=== PATIENT | female | born 1975 | race Caucasian/White ===

== ENCOUNTER 2017-03-01 20:58 | Emergency (ER) | payer MEDICAID ==
[~2017-03-01] VITALS: Ht 167.6 cm; Wt 58.2 kg
[~2017-03-01 20:58] MED LIST: CIPR500T4 PO; LORTA5 PO
[2017-03-01 21:10] VITALS: BP 133/95; PULSE 108; RESP 20; TEMP 98.9; O2SAT 97
[2017-03-01] MEDS ORDERED: SODIUM CHLOR 0.9% 1000 ML INJ 1,000 ML IV SCH ×2 (22:01→23:15)
--- NOTE | 2017-03-01 22:08 | PD ---
HPI Chief Complaint: nausea/vomiting/diarrhea Time Seen by Provider: 22:01 Travel History International Travel<30 days: No Contact w/Intl Traveler<30days: No Traveled to known affect area: No History of Present Illness HPI The patient is a 41-year-old female that has had nausea, vomiting and diarrhea as well as midline epigastric pain for over a week. She denies vomiting any blood or any melanotic or bloody stools. She states she is extremely anxious, she just lost her job and is going through a divorce. She has had a tubal ligation. The patient does have a history of chronic bowel problems but they could never find out what the problem was. They considered things like Crohn's disease, irritable bowel syndrome but they never gave her a diagnosis. She states she goes along for a number of months without any problem and then gets nausea, vomiting and diarrhea. She also has a history of frequent kidney infections. She does feel dehydrated. She still has her gallbladder and appendix. She states she cannot be , she has had a tubal ligation. PFSH Past Medical History Blood Disorders: No Cardiovascular Problems: No Diabetes: No Diminished Hearing: No Hepatitis: No Hiatal Hernia: No Kidney Stones: Yes Respiratory: No Immunizations Current: Yes Thyroid Disease: No : 3 Para: 3 Miscarriage: 0 : 0 Dilation and Curettage (D&C): Yes Tubal Ligation: Yes (2006) Past Surgical History Genitourinary Surgery: Yes (09/20 CYSTOSCOPY INERTION URETERAL STENT) Gynecologic Surgery: Yes (D&C X 2; TUBAL LIGATION) Pacemaker: No Thoracic Surgery: Yes (INSERTION BILATERAL BREAST IMPLANTS) Other Surgery: Yes (2 STENTS PLACED IN RT KIDNEY 09/23/12) Social History Alcohol Use: No Tobacco Use: No Substance Use: No Allergies-Medications (Allergen,Severity, Reaction): Coded Allergies: No Known Allergies (Verified , 10/20/12) NKA Reported Meds & Prescriptions Reported Meds & Active Scripts Active Phenergan (Promethazine HCl) 25 Mg Tablet 25 Mg PO Q6H PRN Reported Jinteli 1/5 (Norethindrone-Ethinyl Estradiol) 1-5 Mg-Mcg Tab 0.5 Tab PO DAILY Review of Systems Except as stated in HPI: all other systems reviewed are Neg Physical Exam Narrative GENERAL: The patient is alert, anxious, oriented 3, moderately dehydrated appearing in moderate apparent distress with her abdominal discomfort. Her vital signs show heart rate of 108 with blood pressure 133/95 but are otherwise normal. SKIN: Focused skin assessment warm/dry. HEAD: Atraumatic. Normocephalic. EYES: Pupils equal and round. No scleral icterus. No injection or drainage. ENT: No nasal bleeding or discharge. Mucous membranes pink and moist. NECK: Trachea midline. No JVD. CARDIOVASCULAR: Regular rate and rhythm. No murmur appreciated. RESPIRATORY: No accessory muscle use. Clear to auscultation. Breath sounds equal bilaterally. GASTROINTESTINAL: Abdomen soft, with tenderness to direct palpation in all 4 quadrants but particularly in the midline epigastrium. Also noted is left flank tenderness to direct palpation, nondistended. Hepatic and splenic margins not palpable. No guarding or rebound is present. MUSCULOSKELETAL: No obvious deformities. No clubbing. No cyanosis. No edema. NEUROLOGICAL: Awake and alert. No obvious cranial nerve deficits. Motor grossly within normal limits. Normal speech. PSYCHIATRIC: Appropriate mood and affect; insight and judgment normal. Data Data Last Documented VS Vital Signs Date Time Temp Pulse Resp B/P Pulse Ox O2 Delivery O2 Flow Rate FiO2 03/01/17 23:26 80 18 115/52 98 Room Air 03/01/17 21:10 98.9 Orders Complete Blood Count With Diff (03/01/17 22:01) Comprehensive Metabolic Panel (03/01/17 22:01) Lipase (03/01/17 22:01) Urinalysis - C+S If Indicated (03/01/17 22:01) Iv Access Insert/Monitor (03/01/17 22:01) Ecg Monitoring (03/01/17 22:01) Oximetry (03/01/17 22:01) Morphine Inj (Morphine Inj) (03/01/17 22:15) Ondansetron Inj (Zofran Inj) (03/01/17 22:15) Pantoprazole Inj (Protonix Inj) (03/01/17 22:15) Sodium Chlor 0.9% 1000 Ml Inj (Ns 1000 M (03/01/17 22:01) Sodium Chloride 0.9% Flush (Ns Flush) (03/01/17 22:15) Famotidine Inj (Pepcid Inj) (03/01/17 22:15) Al-Mag Hy-Si 40-40-4 Mg/Ml Liq (Mag-Al P (03/01/17 22:15) Lidocaine 2% Viscous (Xylocaine 2% Visco (03/01/17 22:15) Ct Abd/Pel W Iv Contrast(Rout) (03/01/17 22:09) Iohexol 350 Inj (Omnipaque 350 Inj) (03/01/17 22:39) Lorazepam Inj (Ativan Inj) (03/01/17 23:15) Sodium Chlor 0.9% 1000 Ml Inj (Ns 1000 M (03/01/17 23:15) Ondansetron Inj (Zofran Inj) (03/01/17 23:15) Labs Laboratory Tests Test 03/01/17 22:15 White Blood Count 9.8 TH/MM3 Red Blood Count 4.08 MIL/MM3 Hemoglobin 13.1 GM/DL Hematocrit 39.0 % Mean Corpuscular Volume 95.5 FL Mean Corpuscular Hemoglobin 32.0 PG Mean Corpuscular Hemoglobin 33.5 % Concent Red Cell Distribution Width 12.1 % Platelet Count 225 TH/MM3 Mean Platelet Volume 8.4 FL Neutrophils (%) (Auto) 85.8 % Lymphocytes (%) (Auto) 9.9 % Monocytes (%) (Auto) 2.1 % Eosinophils (%) (Auto) 0.2 % Basophils (%) (Auto) 2.0 % Neutrophils # (Auto) 8.4 TH/MM3 Lymphocytes # (Auto) 1.0 TH/MM3 Monocytes # (Auto) 0.2 TH/MM3 Eosinophils # (Auto) 0.0 TH/MM3 Basophils # (Auto) 0.2 TH/MM3 CBC Comment DIFF FINAL Differential Comment Sodium Level 142 MEQ/L Potassium Level 3.9 MEQ/L Chloride Level 107 MEQ/L Carbon Dioxide Level 25.1 MEQ/L Anion Gap 10 MEQ/L Blood Urea Nitrogen 12 MG/DL Creatinine 0.65 MG/DL Estimat Glomerular Filtration 101 ML/MIN Rate Random Glucose 109 MG/DL Calcium Level 9.3 MG/DL Total Bilirubin 0.4 MG/DL Aspartate Amino Transf 13 U/L (AST/SGOT) Alanine Aminotransferase 15 U/L (ALT/SGPT) Alkaline Phosphatase 52 U/L Total Protein 7.5 GM/DL Albumin 4.2 GM/DL Lipase 289 U/L [facility] Medical Decision Making Medical Screen Exam Complete: Yes Emergency Medical Condition: Yes Medical Record Reviewed: Yes Interpretation(s) The CT abdomen/pelvis with IV contrast shows tiny calcified nonobstructing bilateral renal calculi but no acute obstructive uropathy. It also shows hepatomegaly. The CBC is normal except for 86% neutrophils. The complete metabolic profile is essentially normal. The lipase is normal. Differential Diagnosis Colitis, gastroenteritis, dehydration, electrolyte imbalance, anemia, urinary tract infectionpyelonephritis, UTIcystitis, renal insufficiency, anxiety Narrative Course The patient has anxiety. She may have a gastroenteritis but her symptoms at this time appear more anxiety related. She will need some nausea medicine. We will write Phenergan 25 mg every 6 hours. The patient refused Ativan and morphine, she has to drive home. Diagnosis Primary Impression: Anxiety Additional Impression: Nausea vomiting and diarrhea Additional Instructions: The Phenergan is for nausea/vomiting. It may also help to calm you down. It can make you sleepy. A careful about driving and do not drink alcohol with Phenergan. Follow-up next week with her primary care physician. Med/Other Pt SpecificInfo: Prescription(s) given Scripts Promethazine (Phenergan)25 Mg [id number] Mg PO Q6H PRN (NAUSEA OR VOMITING) #30 TAB Ref 0 Prov:Marcelo Deng MD 03/01/17 Disposition: 01 DISCHARGE HOME Condition: Stable Marcelo Deng MD Mar 01, 2017 22:08
[2017-03-01] MEDS ORDERED: SODIUM CHLORIDE 0.9% FLUSH 10 ML FLUSH IV FLUSH PRN (22:15)
[2017-03-01] MEDS: ALUMINUM/MAGNESIUM/SIMETH 30 ML CUP PO ONE ×2 (22:15→22:24)
[2017-03-01] MEDS ORDERED: PANTOPRAZOLE SODIUM 40 MG VIAL IVP ONE (22:15)
[2017-03-01] MEDS ORDERED: ONDANSETRON HCL 4 MG/2 ML VIAL IVP ONE (22:15)
[2017-03-01] MEDS ORDERED: FAMOTIDINE 20 MG/2 ML VIAL IV PUSH ONE (22:15)
[2017-03-01] MEDS ORDERED: MORPHINE SULFATE 4 MG/ML INJ IV PUSH ONE (22:15)
[2017-03-01] MEDS: LIDOCAINE VISCOUS 2% SOLN 15 ML UDC PO ONE ×2 (22:15→22:23)
[2017-03-01 22:28] LABS: AUTOMATED NEUTROPHIL # 8.4 TH/MM3 (1.8-7.7); BASOPHIL # 0.2 TH/MM3 (0-0.2); EOSINOPHIL % 0.2 % (0.0-4.0); LYMPH % 9.9 % (9.0-44.0); MEAN CELL VOLUME 95.5 FL (80.0-100.0); MEAN CORPUSCULAR HGB CONC 33.5 % (32.0-36.0); MONO % 2.1 % (0.0-8.0); NEUT % 85.8 % (16.0-70.0); PLATELET COUNT 225 TH/MM3 (150-450); RED BLOOD COUNT 4.08 MIL/MM3 (4.00-5.30); RED CELL DISTRIBUTION WIDTH 12.1 % (11.6-17.2); WHITE BLOOD COUNT 9.8 TH/MM3 (4.0-11.0)
[2017-03-01 22:35] LABS: HEMO FLAGS DIFF FINAL
[2017-03-01 22:36] LABS: CHLORIDE 107 MEQ/L (98-107); POTASSIUM 3.9 MEQ/L (3.5-5.1); SODIUM (NA) 142 MEQ/L (136-145)
[2017-03-01] MEDS ORDERED: IOHEXOL 350 MG/ML 10 ML VIAL (for RAD DIAG) IV ONE (22:39)
[2017-03-01 22:40] LABS: ANION GAP 10 MEQ/L (5-15); BICARBONATE 25.1 MEQ/L (21.0-32.0); BLOOD UREA NITROGEN 12 MG/DL (7-18)
[2017-03-01 22:43] VITALS: BP 121/49; PULSE 82; RESP 18; O2SAT 98
[2017-03-01 22:43] LABS: ALT (GPT) 15 U/L (10-53); AST (GOT) 13 U/L (15-37); GLOMERULAR FILTRATION RATE 101 ML/MIN (>89)
[2017-03-01 22:45] LABS: TOTAL BILIRUBIN ADULT 0.4 MG/DL (0.2-1.0)
[2017-03-01 22:46] LABS: ALKALINE PHOSPHATASE 52 U/L (45-117)
--- NOTE | 2017-03-01 22:48 | RADRPT ---
EXAM DATE/TIME: 03/01/2017 22:19 [facility] COMPARISON: No previous studies available for comparison. INDICATIONS : Epigastric pain, nausea, vomiting and diarrhea for one week. IV CONTRAST: 70 cc Omnipaque 350 (iohexol) IV ORAL CONTRAST: No oral contrast ingested. RADIATION DOSE: 5.72 CTDIvol (mGy) MEDICAL HISTORY : None SURGICAL HISTORY : Tubal ligation. Breast augmentation, D&C ENCOUNTER: Initial ACUITY: 1 week PAIN SCALE: 4/10 LOCATION: Bilateral lower quadrant TECHNIQUE: Volumetric scanning of the abdomen and pelvis was performed. Using automated exposure control and ad justment of the mA and/or kV according to patient size, radiation dose was kept as low as reasonably achievable to obtain optimal diagnostic quality images. DICOM format image data is available electro nically for review and comparison. FINDINGS: LOWER LUNGS: The visualized lower lungs are clear. LIVER: Hepatomegaly is noted. Homogeneous density without lesion. There is no dilation of the biliary tree. No calcified gallstones. SPLEEN: Normal size without lesion. PANCREAS: Within normal limits. KIDNEYS: Normal in size and shape. Tiny calcified nonobstructing bilateral renal calculi are noted with the l argest located in the upper pole on the right measuring 4 mm. There is no mass or hydronephrosis. ADRENAL GLANDS: Within normal limits. VASCULAR: There is no aortic aneurysm. BOWEL/MESENTERY: The stomach, small bowel, and colon demonstrate no acute abnormality. There is no free intraperitone al air or fluid. ABDOMINAL WALL: Within normal limits. RETROPERITONEUM: There is no lymphadenopathy. BLADDER: No wall thickening or mass. REPRODUCTIVE: Within normal limits. INGUINAL: There is no lymphadenopathy or hernia. MUSCULOSKELETAL: Within normal limits for patient age. CONCLUSION: 1. Tiny calcified nonobstructing bilateral renal calculi. 2. No acute obstructive uropathy. 3. Hepatomegaly. Ronak Back MD on March 01, 2017 at 22:44 Board Certified Radiologist. This report was verified electronically.
[2017-03-01] MEDS ORDERED: JINT1TAB PO (22:51)
[2017-03-01] MEDS ORDERED: ONDANSETRON HCL 4 MG/2 ML VIAL IV ONE (23:15)
[2017-03-01] MEDS ORDERED: LORazepam 2 MG/ML VIAL IV PUSH ONE (23:15)
[2017-03-01 23:26] VITALS: BP 115/52; PULSE 80; RESP 18; O2SAT 98
[2017-03-01] MEDS ORDERED: PROM25TA10 PO (23:28)
[2017-03-01 23:38] LABS: BLOOD, URINE SMALL (NEG); GLUCOSE,URINE NEG (NEG); KETONE, URINE 40 mg/dL (NEG); NITRITE,URINE NEG (NEG)
[2017-03-01 23:55] LABS: URINE COLOR YELLOW (YELLW/STRAW)
[2017-03-01 23:56] LABS: MUCUS URINE FEW /lpf (OCC); WBC, URINE 0-2 /hpf (0-5)
[2017-03-01 23:57] LABS: COMMENT (UR) CULT NOT INDICATED; CULTURE IF INDICATED CULT NOT INDICATED
== END 2017-03-02 00:02 | disposition home or self-care (01) ==
LOC: PHED 20:58
DX: F41.9 Anxiety disorder, unspecified (principal); R11.2 Nausea with vomiting, unspecified; R19.7 Diarrhea, unspecified
CPT/HCPCS: 74177; 80053; 81001; 83690; 85025; 96361; 96374; 96375; 96376; 99285; C9113; J2405; J7030; Q9967

== ENCOUNTER 2017-08-15 06:16 | Emergency (ER) | payer MEDICAID ==
[~2017-08-15] VITALS: Ht 167.6 cm; Wt 57.0 kg
[~2017-08-15 06:16] MED LIST changes: -CIPR500T4 PO; +JINT1TAB PO; -LORTA5 PO; +PROM25TA10 PO
[2017-08-15] MEDS ORDERED: ONDANSETRON HCL 4 MG/2 ML VIAL ONE (06:22)
[2017-08-15 06:24] VITALS: BP 153/78; PULSE 63; RESP 18; TEMP 97.2; O2SAT 98
[2017-08-15] MEDS ORDERED: SODIUM CHLOR 0.9% 1000 ML INJ 1,000 ML IV ONE (06:27)
[2017-08-15] MEDS ORDERED: ONDANSETRON HCL 4 MG/2 ML VIAL IVP ONE (06:30)
[2017-08-15] MEDS ORDERED: SODIUM CHLORIDE 0.9% FLUSH 10 ML FLUSH IVF PRN (06:30)
[2017-08-15 06:38] VITALS: O2SAT 100
[2017-08-15 06:41] LABS: AUTOMATED NEUTROPHIL # 3.1 TH/MM3 (1.8-7.7); BASOPHIL # 0.1 TH/MM3 (0-0.2); EOSINOPHIL # 0.1 TH/MM3 (0-0.4); EOSINOPHIL % 2.1 % (0.0-4.0); HEMATOCRIT 40.2 % (35.0-46.0); HEMO FLAGS DIFF FINAL; LYMPH % 41.9 % (9.0-44.0); LYMPHOCYTE # 2.8 TH/MM3 (1.0-4.8); MEAN CELL VOLUME 95.3 FL (80.0-100.0); MEAN CORPUSCULAR HEMOGLOBIN 31.7 PG (27.0-34.0); MEAN CORPUSCULAR HGB CONC 33.3 % (32.0-36.0); PLATELET COUNT 243 TH/MM3 (150-450); RED BLOOD COUNT 4.22 MIL/MM3 (4.00-5.30); RED CELL DISTRIBUTION WIDTH 11.4 % (11.6-17.2); WHITE BLOOD COUNT 6.6 TH/MM3 (4.0-11.0)
--- NOTE | 2017-08-15 06:44 | PD ---
HPI Chief Complaint: GI Complaint Time Seen by Provider: 06:27 Travel History International Travel<30 days: No Contact w/Intl Traveler<30days: No Traveled to known affect area: No History of Present Illness HPI 41-year-old female presents to the emergency department by private transportation for complaint of 2 days of night time sweats and this morning awakening from sleep with severe nausea vomiting and dizziness. Patient also complains of midline lower abdominal pain. Patient states she's had a 20 pound weight loss since March. No report of hematemesis coffee-ground emesis melena hematochezia. Patient states that she is currently on Medicaid because she had lost her job and has not had good health care. Patient was seen last in the emergency department February/2017 for anxiety over loss of for job and having a divorce at that time. 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 Patient has had previous kidney stones and recurrent kidney infections. Patient has had no fever no chills no cough no congestion no sore throat no chest pain no thyroid disease has had previous tubal ligation and uterine ablation as well as ureteral stent placement. Patient admits to marijuana use but no tobacco use. Patient was previously on control pills but discontinued them abruptly approximately 2-3 months ago. Patient reports her abdominal pain 7/10 in intensity. Patient takes no prescription medications at this time. PFSH Past Medical History Narrative Medical Anxiety depression, kidney stones, UTI, ureteral stents, tubal ligation, uterine ablation, breast augmentation, marijuana use; nursing notes reviewed Blood Disorders: No Depression: Yes Cardiovascular Problems: No Diabetes: No Diminished Hearing: No Hepatitis: No Hiatal Hernia: No Kidney Stones: Yes (r kidney occlusion/surgery) Respiratory: No Immunizations Current: Yes Thyroid Disease: No Tetanus Vaccination: > 5 Years Influenza Vaccination: No ?: Not LMP: uterine ablation : 3 Para: 3 Miscarriage: 0 : 0 Dilation and Curettage (D&C): Yes Tubal Ligation: Yes (2006) Past Surgical History Genitourinary Surgery: Yes (09/20 CYSTOSCOPY INERTION URETERAL STENT) Gynecologic Surgery: Yes (D&C X 2; TUBAL LIGATION) Pacemaker: No Thoracic Surgery: Yes (INSERTION BILATERAL BREAST IMPLANTS) Other Surgery: Yes (2 STENTS PLACED IN RT KIDNEY 09/23/12) Social History Alcohol Use: No Tobacco Use: No Substance Use: Yes (smokes weed everyday ) Allergies-Medications (Allergen,Severity, Reaction): Coded Allergies: No Known Allergies (Verified Adverse Reaction, Unknown, 08/15/17) NKA Reported Meds & Prescriptions Reported Meds & Active Scripts Active Phenergan (Promethazine HCl) 25 Mg Tablet 25 Mg PO Q6H PRN Reported Jinteli 1/5 (Norethindrone-Ethinyl Estradiol) 1-5 Mg-Mcg Tab 0.5 Tab PO DAILY Review of Systems Except as stated in HPI: all other systems reviewed are Neg Physical Exam Narrative GENERAL: Well-developed well-nourished female in obvious discomfort with no respiratory distress with pallor; GCS 15 SKIN: Warm and dry. HEAD: Atraumatic. Normocephalic. EYES: Pupils equal and round. No scleral icterus. No injection or drainage. ENT: No nasal bleeding or discharge. Mucous membranes pink and moist. NECK: Trachea midline. No JVD. CARDIOVASCULAR: Regular rate and rhythm. RESPIRATORY: No accessory muscle use. Clear to auscultation. Breath sounds equal bilaterally. GASTROINTESTINAL: Abdomen soft, non-tender, nondistended. Hepatic and splenic margins not palpable. MUSCULOSKELETAL: Extremities without clubbing, cyanosis, or edema. No obvious deformities. NEUROLOGICAL: Awake and alert. No obvious cranial nerve deficits. Motor grossly within normal limits. Five out of 5 muscle strength in the arms and legs. No pronator drift. No limb ataxia. Normal speech. PSYCHIATRIC: Appropriate mood and affect; insight and judgment normal. Data Data Last Documented VS Vital Signs Date Time Temp Pulse Resp B/P (MAP) Pulse Ox O2 Delivery O2 Flow Rate FiO2 08/15/17 06:38 100 Room Air 08/15/17 06:24 97.2 63 18 153/78 (103) Orders Orders Ondansetron Inj (Zofran Inj) (08/15/17 06:22) Electrocardiogram (08/15/17 06:27) Ed Urine Pregnancytest Poc (08/15/17 06:27) Complete Blood Count With Diff (08/15/17 06:27) Comprehensive Metabolic Panel (08/15/17 06:27) Magnesium (Mg) (08/15/17 06:27) Ckmb (Isoenzyme) Profile (08/15/17 06:27) Troponin I (08/15/17 06:27) Act Partial Throm Time (Ptt) (08/15/17:) Prothrombin Time / Inr (Pt) (08/15/17:) Urinalysis - C+S If Indicated (08/15/17:) Chest, Single Ap (08/15/17:) Ct Brain W/O Iv Contrast(Rout) (08/15/17:) Blood Glucose (08/15/17:) Ecg Monitoring (08/15/17) Iv Access Insert/Monitor (08/15/17) Oximetry (08/15/17:) Ondansetron Inj (Zofran Inj) (08/15/17:30) Sodium Chloride 0.9% Flush (Ns Flush) (08/15/17:30) Sodium Chlor 0.9% 1000 Ml Inj (Ns 1000 M (08/15/17:) Thyroid Stimulating Hormone (08/15/17:) Lipase (08/15/17:) Drug Screen, Random Urine (08/15/17 06:30) Labs Laboratory Tests Test 08/15/17:33 White Blood Count 6.6 TH/MM3 Red Blood Count 4.22 MIL/MM3 Hemoglobin 13.4 GM/DL Hematocrit 40.2 % Mean Corpuscular Volume 95.3 FL Mean Corpuscular Hemoglobin 31.7 PG Mean Corpuscular Hemoglobin Concent 33.3 % Red Cell Distribution Width 11.4 % Platelet Count 243 TH/MM3 Mean Platelet Volume 8.5 FL Neutrophils (%) (Auto) 48.0 % Lymphocytes (%) (Auto) 41.9 % Monocytes (%) (Auto) 7.0 % Eosinophils (%) (Auto) 2.1 % Basophils (%) (Auto) 1.0 % Neutrophils # (Auto) 3.1 TH/MM3 Lymphocytes # (Auto) 2.8 TH/MM3 Monocytes # (Auto) 0.5 TH/MM3 Eosinophils # (Auto) 0.1 TH/MM3 Basophils # (Auto) 0.1 TH/MM3 CBC Comment DIFF FINAL Differential Comment Prothrombin Time 10.2 SEC Prothromb Time International Ratio 1.0 RATIO Activated Partial Thromboplast Time 21.7 SEC Blood Urea Nitrogen 22 MG/DL Random Glucose 151 MG/DL Albumin 3.9 GM/DL Calcium Level 8.7 MG/DL Magnesium Level 1.9 MG/DL Sodium Level 138 MEQ/L Potassium Level 4.1 MEQ/L Chloride Level 107 MEQ/L Carbon Dioxide Level 22.8 MEQ/L Anion Gap 8 MEQ/L Lipase 318 U/L MDM Medical Decision Making Medical Screen Exam Complete: Yes Emergency Medical Condition: Yes Medical Record Reviewed: Yes Interpretation(s) EKG: normal sinus rhythm rate [address] elevation injury pattern or ectopy noted Differential Diagnosis Viral syndrome, arrhythmia, anemia, vertigo, near syncope, thyroid dysfunction, peptic ulcer disease, pancreatitis, substance ingestion, anxiety; also to consider ACS, TIA Narrative Course 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 Patient with history of frequent renal colic. Patient now discloses she has had similar symptoms in the past and has not felt well with frequent episodes similar to this but not as intense in the past several months. @ 0700 Care signed over to Iman Rivera MD Aug 15, 2017 06:44
--- NOTE | 2017-08-15 06:47 | RADRPT ---
EXAM DATE/TIME: 08/15/2017 06:34 [facility] COMPARISON: No previous studies available for comparison. INDICATIONS : Chest pain, epigastric pain, chills, tremors, sweating. MEDICAL HISTORY : Renal calculi. SURGICAL HISTORY : Tubal ligation. Uereteral stents. D &C. ENCOUNTER: Initial ACUITY: 2 days PAIN SCORE: 5/10 LOCATION: chest FINDINGS: A single view of the chest demonstrates the lungs to be symmetrically aerated without evidence of mas s, infiltrate or effusion. The cardiomediastinal contours are unremarkable. Osseous structures are intact. CONCLUSION: Normal examination. Molina Altman MD on August 15, 2017 at 6:45 Board Certified Radiologist. This report was verified electronically.
[2017-08-15 06:49] LABS: CHLORIDE 107 MEQ/L (98-107); POTASSIUM 4.1 MEQ/L (3.5-5.1); SODIUM (NA) 138 MEQ/L (136-145)
[2017-08-15 06:53] LABS: ANION GAP 8 MEQ/L (5-15); BICARBONATE 22.8 MEQ/L (21.0-32.0); BLOOD UREA NITROGEN 22 MG/DL (7-18); MAGNESIUM 1.9 MG/DL (1.5-2.5)
[2017-08-15 06:54] LABS: APTT (PATIENT) 21.7 SEC (24.3-30.1); PROTHROMBIN TIME - PATIENT 10.2 SEC (9.8-11.6)
[2017-08-15 06:56] LABS: ALT (GPT) 20 U/L (10-53); AST (GOT) 16 U/L (15-37); GLOMERULAR FILTRATION RATE 87 ML/MIN (>89)
[2017-08-15 06:58] LABS: TOTAL BILIRUBIN ADULT 0.3 MG/DL (0.2-1.0)
[2017-08-15 06:59] LABS: ALKALINE PHOSPHATASE 59 U/L (45-117)
[2017-08-15] MEDS ORDERED: ONDANSETRON HCL 4 MG/2 ML VIAL IV PUSH ONE (07:00)
[2017-08-15 07:05] LABS: CREATINE KINASE 67 U/L (26-192)
--- NOTE | 2017-08-15 07:29 | EKG ---
Date Performed: 08/15/2017 Time Performed: 06:25:47 PTAGE: 41 years EKG: Baseline artifact present Sinus rhythm NORMAL ECG INTERPRETATION BASED ON A DEFAULT AGE OF 42 YEARS Compared to prior electrocardiogram, Th ere is no definite change although present EKG has artifact. PREVIOUS TRACING : 04/20/2012 23.14 DOCTOR: Chas Clarke Interpretating Date/Time 08/15/2017 07:27:53
[2017-08-15] MEDS ORDERED: IOHEXOL 350 MG/ML 10 ML VIAL (for RAD DIAG) IVCONTRAST ONE (08:00)
--- NOTE | 2017-08-15 08:09 | RADRPT ---
EXAM DATE/TIME: 08/15/2017 07:32 [facility] COMPARISON: No previous studies available for comparison. INDICATIONS : Dizziness, nausea and vomiting. RADIATION DOSE: 56.35 CTDIvol (mGy) ; Tabletop CT Head MEDICAL HISTORY : Renal calculi. SURGICAL HISTORY : Tubal ligation. Renal stents ENCOUNTER: Initial ACUITY: 1 day PAIN SCALE: 8/10 LOCATION: cranial TECHNIQUE: Multiple contiguous axial images were obtained of the head. Using automated exposure control and adj ustment of the mA and/or kV according to patient size, radiation dose was kept as low as reasonably a chievable to obtain optimal diagnostic quality images. DICOM format image data is available electro nically for review and comparison. FINDINGS: CEREBRUM: The ventricles are normal for age. No evidence of midline shift, mass lesion, hemorrhage or acute in farction. No extra-axial fluid collections are seen. POSTERIOR FOSSA: The cerebellum and brainstem are intact. The 4th ventricle is midline. The cerebellopontine angle i s unremarkable. EXTRACRANIAL: The visualized portion of the orbits is intact. SKULL: The calvaria is intact. No evidence of skull fracture. CONCLUSION: 1. No acute intracranial abnormality. Dennis Guillaume MD on August 15, 2017 at 8:07 Board Certified Radiologist. This report was verified electronically.
--- NOTE | 2017-08-15 08:17 | RADRPT ---
EXAM DATE/TIME: 08/15/2017 07:37 [facility] COMPARISON: CT ABDOMEN & PELVIS W CONTRAST, March 01, 2017, 22:19. INDICATIONS : Right lower quadrant pain, nausea and vomiting. IV CONTRAST: 85 cc Omnipaque 350 (iohexol) IV ORAL CONTRAST: No oral contrast ingested. RADIATION DOSE: 5.45 CTDIvol (mGy) MEDICAL HISTORY : Renal calculi. SURGICAL HISTORY : Tubal ligation. Renal stents. ENCOUNTER: Initial ACUITY: 1 day PAIN SCALE: 8/10 LOCATION: Right lower quadrant TECHNIQUE: Volumetric scanning of the abdomen and pelvis was performed. Using automated exposure control and ad justment of the mA and/or kV according to patient size, radiation dose was kept as low as reasonably achievable to obtain optimal diagnostic quality images. DICOM format image data is available electro nically for review and comparison. FINDINGS: LOWER LUNGS: The visualized lower lungs are clear. LIVER: Liver is mildly enlarged but otherwise unremarkable without significant intrahepatic ductal dilatatio n or focal mass. Gallbladder is unremarkable by CT. SPLEEN: Normal size without lesion. PANCREAS: Within normal limits. KIDNEYS: There is a 3 mm stable calcified density in the posterior superior pole of the right kidney. There ar e small subcentimeter hypodense cystic lesions in the inferior pole of the left kidney which are too small to characterize. Kidneys are otherwise unremarkable without evidence for hydronephrosis and are symmetrical in size. ADRENAL GLANDS: Within normal limits. VASCULAR: There is no aortic aneurysm. BOWEL/MESENTERY: The stomach, small bowel, and colon demonstrate no acute abnormality. The appendix is not definitivel y directly visualized. However, there is no significant inflammatory change in the pericecal region. No pericecal adenopathy. There is no free intraperitoneal air or fluid. ABDOMINAL WALL: Within normal limits. RETROPERITONEUM: There is no lymphadenopathy. BLADDER: No wall thickening or mass. REPRODUCTIVE: Slightly prominent endometrium which could be related to phase of menstrual cycle. INGUINAL: There is no lymphadenopathy or hernia. MUSCULOSKELETAL: Within normal limits for patient age. CONCLUSION: 1. Stable right upper pole nonobstructing calcified calyceal calculus. No obstructive uropathy. 2. Appendix is not directly visualized. However, no significant pericecal inflammatory change/adenopa thy. 3. Stable mild hepatomegaly. Dennis Guillaume MD on August 15, 2017 at 8:07 Board Certified Radiologist. This report was verified electronically.
[2017-08-15 08:19] VITALS: BP 99/57; PULSE 84; RESP 16; O2SAT 99
[2017-08-15] MEDS ORDERED: PROMETHAZINE HCL 25 MG TAB PO ONE (08:30)
[2017-08-15 08:36] LABS: GLUCOSE,URINE NEG (NEG); KETONE, URINE NEG (NEG); NITRITE,URINE NEG (NEG); PH, URINE 6.5 (5.0-8.5)
[2017-08-15 08:38] LABS: BLOOD, URINE TRACE (NEG)
[2017-08-15 08:39] LABS: METHOD OF COLLECTION CLEAN CATCH; URINE COLOR YELLOW (YELLW/STRAW)
[2017-08-15 08:40] LABS: COMMENT (UR) CULT NOT INDICATED; CULTURE IF INDICATED CULT NOT INDICATED; RBC, URINE 0-3 /hpf (0-3); SQUAMOUS EPITHELIAL CELL URINE 0-5 /hpf (0-5)
[2017-08-15 10:02] VITALS: BP 115/50; PULSE 61; RESP 16; O2SAT 100
[2017-08-15] MEDS ORDERED: PROM25TA10 PO (10:06)
--- NOTE | 2017-08-15 10:07 | PD ---
Physical Exam Narrative Patient signed out to me by Dr. Cardona. Please see her documentation for complete details. Briefly, patient is a 41-year-old female comes in complaining of nausea and vomiting. On exam shows mild diffuse tenderness to the abdomen. No rebound or guarding. Data Data Last Documented VS Vital Signs Date Time Temp Pulse Resp B/P (MAP) Pulse Ox O2 Delivery O2 Flow Rate FiO2 08/15/17 10:15 08/15/17 10:02 61 16 100 Room Air 08/15/17 06:24 97.2 Orders Orders Ondansetron Inj (Zofran Inj) (08/15/17 06:22) Electrocardiogram (08/15/17 06:27) Ed Urine Pregnancytest Poc (08/15/17 06:27) Complete Blood Count With Diff (08/15/17 06:27) Comprehensive Metabolic Panel (08/15/17 06:27) Magnesium (Mg) (08/15/17 06:27) Ckmb (Isoenzyme) Profile (08/15/17 06:27) Troponin I (08/15/17 06:27) Act Partial Throm Time (Ptt) (08/15/17 06:27) Prothrombin Time / Inr (Pt) (08/15/17 06:27) Urinalysis - C+S If Indicated (08/15/17 06:27) Chest, Single Ap (08/15/17 06:27) Ct Brain W/O Iv Contrast(Rout) (08/15/17 06:27) Blood Glucose (08/15/17 06:27) Ecg Monitoring (08/15/17 06:27) Iv Access Insert/Monitor (08/15/17:27) Oximetry (08/15/17 06:27) Ondansetron Inj (Zofran Inj) (08/15/17 06:30) Sodium Chloride 0.9% Flush (Ns Flush) (08/15/17 06:30) Sodium Chlor 0.9% 1000 Ml Inj (Ns 1000 M (08/15/17 06:27) Thyroid Stimulating Hormone (08/15/17 06:27) Lipase (08/15/17 06:27) Drug Screen, Random Urine (08/15/17 06:30) Ondansetron Inj (Zofran Inj) (08/15/17 07:00) Ct Abd/Pel W Iv Contrast(Rout) (08/15/17 ) Iohexol 350 Inj (Omnipaque 350 Inj) (08/15/17 08:00) Promethazine (Phenergan) (08/15/17 08:30) Ed Discharge Order (08/15/17 10:07) Labs Laboratory Tests Test 08/15/17 06:33 08/15/17 08:25 White Blood Count 6.6 TH/MM3 Red Blood Count 4.22 MIL/MM3 Hemoglobin 13.4 GM/DL Hematocrit 40.2 % Mean Corpuscular Volume 95.3 FL Mean Corpuscular Hemoglobin 31.7 PG Mean Corpuscular Hemoglobin Concent 33.3 % Red Cell Distribution Width 11.4 % Platelet Count 243 TH/MM3 Mean Platelet Volume 8.5 FL Neutrophils (%) (Auto) 48.0 % Lymphocytes (%) (Auto) 41.9 % Monocytes (%) (Auto) 7.0 % Eosinophils (%) (Auto) 2.1 % Basophils (%) (Auto) 1.0 % Neutrophils # (Auto) 3.1 TH/MM3 Lymphocytes # (Auto) 2.8 TH/MM3 Monocytes # (Auto) 0.5 TH/MM3 Eosinophils # (Auto) 0.1 TH/MM3 Basophils # (Auto) 0.1 TH/MM3 CBC Comment DIFF FINAL Differential Comment Prothrombin Time 10.2 SEC Prothromb Time International Ratio 1.0 RATIO Activated Partial Thromboplast Time 21.7 SEC Blood Urea Nitrogen 22 MG/DL Creatinine 0.74 MG/DL Random Glucose 151 MG/DL Total Protein 7.0 GM/DL Albumin 3.9 GM/DL Calcium Level 8.7 MG/DL Magnesium Level 1.9 MG/DL Alkaline Phosphatase 59 U/L Aspartate Amino Transf (AST/SGOT) 16 U/L Alanine Aminotransferase (ALT/SGPT) 20 U/L Total Bilirubin 0.3 MG/DL Sodium Level 138 MEQ/L Potassium Level 4.1 MEQ/L Chloride Level 107 MEQ/L Carbon Dioxide Level 22.8 MEQ/L Anion Gap 8 MEQ/L Estimat Glomerular Filtration Rate 87 ML/MIN Total Creatine Kinase 67 U/L Troponin I LESS THAN 0.02 NG/ML Lipase 318 U/L Thyroid Stimulating Hormone 3rd Gen 0.637 uIU/ML Urine Collection Type CLEAN CATCH Urine Color YELLOW Urine Turbidity CLEAR Urine pH 6.5 Urine Specific [place] 1.015 Urine Protein NEG mg/dL Urine Glucose (UA) NEG mg/dL Urine Ketones NEG mg/dL Urine Occult Blood TRACE Urine Nitrite NEG Urine Bilirubin NEG Urine Leukocyte Esterase NEG Urine RBC 0-3 /hpf Urine Squamous Epithelial Cells 0-5 /hpf Microscopic Urinalysis Comment CULT NOT INDICATED Urine Collection Time 08:25 Urine Opiates Screen NEG Urine Barbiturates Screen NEG Urine Amphetamines Screen NEG Urine Benzodiazepines Screen NEG Urine Cocaine Screen NEG Urine Cannabinoids Screen POS [facility] [place] Supervised Visit with STEPHANIE: No Narrative Course CT head showed no acute abnormalities. Patient requested CT of her abdomen and pelvis, which also showed no acute abnormalities. Labs are all within normal limits. Patient states that this happens to her often. She says she has had multiple workups and seeing GI and they cannot tell her why. Patient requesting Phenergan. She was given a oral dose of Phenergan which she did not vomit. This shows a prescription for Phenergan. Advised follow-up with a primary doctor. Advised to drink plenty of fluids. Advised to eat a bland diet. Advised to return to the ED as needed for any worsening symptoms. Diagnosis Primary Impression: Nausea and vomiting Qualified Codes: R11.2 - Nausea with vomiting, unspecified Patient Instructions: Acute Nausea and Vomiting (ED), General Instructions Additional Instruction: Drink plenty of fluids. Eat a bland diet. Follow-up with a primary care doctor and gastroenterology. Return to the ED as needed for any worsening symptoms. Scripts Promethazine (Phenergan) 25 Mg Tablet 25 MG PO Q6H Y for NAUSEA OR VOMITING, #10 TAB 0 Refills Prov: America Mcfarland MD 08/15/17 Disposition: 01 DISCHARGE HOME Condition: Stable America Mcfarland MD Aug 15, 2017 10:07
== END 2017-08-15 10:16 | disposition home or self-care (01) ==
LOC: PHED 06:16
DX: R11.2 Nausea with vomiting, unspecified (principal); F12.90 Cannabis use, unspecified, uncomplicated; R63.4 Abnormal weight loss; R61 Generalized hyperhidrosis; Z87.442 Personal history of urinary calculi
CPT/HCPCS: 70450; 71010; 74177; 80053; 80307; 81001; 82550; 83690; 83735; 84443; 84484; 84703; 85025; 85610; 85730; 93005; 96361; 96374; 99285; J2405; J7030; Q0169; Q9967

== ENCOUNTER 2018-01-27 09:52 | Inpatient (IN) | payer MEDICAID ==
[2018-01-27] VITALS (9 sets, daily range): BP systolic 104–132; BP diastolic 58–76; PULSE 58–77; RESP 14–18; TEMP 97.9–98.9; O2SAT 96–100
[~2018-01-27] VITALS: Ht 167.6 cm; Wt 61.5 kg
--- NOTE | 2018-01-27 10:04 | PD ---
HPI Chief Complaint: Chest Pain Time Seen by Provider: 10:04 Travel History International Travel<30 days: No Contact w/Intl Traveler<30days: No Traveled to known affect area: No History of Present Illness HPI 42-year-old female came to the emergency room with history of on and off chest pain since yesterday, nausea, not feeling good and left arm pain today. Patient says that she is on a hormonal therapy by her FLAGGER Dr. Fernandez. She went to see him today with all the symptoms and he attributed to possible anxiety. Patient was driving back home when the symptoms got worse. She tried to pulling unit operator at her friend's driveway and got out of the car and as she was walking towards her friend's house she passed out. Her friend brought her in. Vital signs are stable. Patient smokes marijuana on a daily basis. She has never had these kind of symptoms in the past. Here she has been nauseous and thrown up twice mostly by retching. No aggravating or relieving symptoms identified. [facility] Past Medical History Narrative Medical List of her past medical, surgical, social and family history is reviewed from the nursing note. Blood Disorders: No Depression: Yes Cardiovascular Problems: No Diabetes: No Diminished Hearing: No Hepatitis: No Hiatal Hernia: No Kidney Stones: Yes (r kidney occlusion/surgery) Respiratory: No Immunizations Current: Yes Thyroid Disease: No : 3 Para: 3 Miscarriage: 0 : 0 Dilation and Curettage (D&C): Yes Tubal Ligation: Yes (2006) Past Surgical History Genitourinary Surgery: Yes (09/20 CYSTOSCOPY INERTION URETERAL STENT) Gynecologic Surgery: Yes (D&C X 2; TUBAL LIGATION) Pacemaker: No Thoracic Surgery: Yes (INSERTION BILATERAL BREAST IMPLANTS) Other Surgery: Yes (2 STENTS PLACED IN RT KIDNEY 09/23/12) Social History Alcohol Use: No Tobacco Use: No Substance Use: Yes (smokes weed everyday ) Allergies-Medications (Allergen,Severity, Reaction): Coded Allergies: No Known Allergies (Verified Adverse Reaction, Unknown, 08/15/17) NKA Comments No known drug allergies. Reported Meds & Prescriptions Reported Meds & Active Scripts Active Reported Paxil (Paroxetine HCl) 10 Mg Tab 10 Mg PO HS Jinteli 1/5 (Norethindrone-Ethinyl Estradiol) 1-5 Mg-Mcg Tab 0.5 Tab PO DAILY Narrative Medication List of her home medications reviewed from the nursing note. Review of Systems Except as stated in HPI: all other systems reviewed are Neg Cardiovascular: Positive: Chest Pain or Discomfort Gastrointestinal: Positive: Nausea, Vomiting Physical Exam Narrative GENERAL: Awake, alert, extremely anxious, moderate distress SKIN: Focused skin assessment warm/dry. HEAD: Atraumatic. Normocephalic. EYES: Pupils equal and round. No scleral icterus. No injection or drainage. ENT: No nasal bleeding or discharge. Mucous membranes pink and moist. NECK: Trachea midline. No JVD. CARDIOVASCULAR: Regular rate and rhythm. No murmur appreciated. RESPIRATORY: No accessory muscle use. Clear to auscultation. Breath sounds equal bilaterally. GASTROINTESTINAL: Abdomen soft, non-tender, nondistended. Hepatic and splenic margins not palpable. MUSCULOSKELETAL: No obvious deformities. No clubbing. No cyanosis. No edema. NEUROLOGICAL: Awake and alert. No obvious cranial nerve deficits. Motor grossly within normal limits. Normal speech. PSYCHIATRIC: Appropriate mood and affect; insight and judgment normal. Data Data Last Documented VS Vital Signs Date Time Temp Pulse Resp B/P (MAP) Pulse Ox O2 Delivery O2 Flow Rate FiO2 01/27/18 10:05 100 01/27/18 10:05 69 16 01/27/18 10:03 97.9 132/64 (86) Orders Orders Electrocardiogram (01/27/18 10:33) Basic Metabolic Panel (Bmp) (01/27/18 10:33) Complete Blood Count With Diff (01/27/18 10:33) Troponin I (01/27/18 10:33) Prothrombin Time / Inr (Pt) (01/27/18 10:33) Urinalysis - C+S If Indicated (01/27/18 10:33) Chest, Single Ap (01/27/18 10:33) Ct Brain W/O Iv Contrast(Rout) (01/27/18 10:33) Ecg Monitoring (01/27/18 10:33) Iv Access Insert/Monitor (01/27/18 10:33) Oximetry (01/27/18 10:33) Sodium Chloride 0.9% Flush (Ns Flush) (01/27/18 10:45) Sodium Chlor 0.9% 1000 Ml Inj (Ns 1000 M (01/27/18 10:33) Metoclopramide Inj (Reglan Inj) (01/27/18 10:45) Admit Order (Ed Use Only) (01/27/18 12:16) Labs Laboratory Tests Test 01/27/18 10:00 White Blood Count 11.8 TH/MM3 Red Blood Count 4.12 MIL/MM3 Hemoglobin 13.5 GM/DL Hematocrit 40.2 % Mean Corpuscular Volume 97.5 FL Mean Corpuscular Hemoglobin 32.8 PG Mean Corpuscular Hemoglobin Concent 33.7 % Red Cell Distribution Width 11.9 % Platelet Count 241 TH/MM3 Mean Platelet Volume 8.9 FL Neutrophils (%) (Auto) 85.5 % Lymphocytes (%) (Auto) 11.6 % Monocytes (%) (Auto) 2.2 % Eosinophils (%) (Auto) 0.3 % Basophils (%) (Auto) 0.4 % Neutrophils # (Auto) 10.1 TH/MM3 Lymphocytes # (Auto) 1.4 TH/MM3 Monocytes # (Auto) 0.3 TH/MM3 Eosinophils # (Auto) 0.0 TH/MM3 Basophils # (Auto) 0.0 TH/MM3 CBC Comment DIFF FINAL Differential Comment Prothrombin Time 10.1 SEC Prothromb Time International Ratio 1.0 RATIO Urine Color YELLOW Urine Turbidity CLEAR Urine pH 7.0 Urine Specific [place] 1.020 Urine Protein NEG mg/dL Urine Glucose (UA) NEG mg/dL Urine Ketones 15 mg/dL Urine Occult Blood TRACE Urine Nitrite NEG Urine Bilirubin NEG Urine Urobilinogen 0.2 MG/DL Urine Leukocyte Esterase NEG Urine WBC 0-2 /hpf Urine Squamous Epithelial Cells 6-8 /hpf Urine Bacteria FEW /hpf Microscopic Urinalysis Comment CULT NOT INDICATED Blood Urea Nitrogen 11 MG/DL Creatinine 0.66 MG/DL Random Glucose 134 MG/DL Calcium Level 8.7 MG/DL Sodium Level 138 MEQ/L Potassium Level 3.6 MEQ/L Chloride Level 106 MEQ/L Carbon Dioxide Level 26.3 MEQ/L Anion Gap 6 MEQ/L Estimat Glomerular Filtration Rate 99 ML/MIN Troponin I LESS THAN 0.02 NG/ML MDM Medical Decision Making Medical Screen Exam Complete: Yes Emergency Medical Condition: Yes Medical Record Reviewed: Yes Interpretation(s) Twelve-lead EKG was reviewed by me. Normal sinus rhythm, normal axis, nonspecific ST-T wave changes. Heart rate of 66 bpm. Differential Diagnosis ACS, non-STEMI, panic attack, cardiac arrhythmia, intracranial bleed Narrative Course 12:21 PM blood test results are back and within acceptable limits. Her head CT and chest x-ray have been read negative by the radiologist. Patient was given Reglan for the nausea. At this point given her chest pain symptoms would like to admit her to be ruled out for ACS. I discussed the case with the hospitalist was accepted the patient. 1PM I was just notified by the nurse that patient said she was very uncomfortable and felt diaphoretic and almost like she had a convulsion in the monitor showed abnormal rhythm. The nurse pulled up the rhythm strip and it appears to be a third-degree heart block. This was nonsustained. A 12-lead EKG immediately after that showed normal sinus rhythm. But patient did get pretty symptomatic corresponding to that rhythm. I put a call out for the plate stacker hand to discuss this with him. Under the circumstances patient may require to be transferred to the main hospital. Pacer pads would be applied just as precautionary measure. Going back on the telemetry monitoring it was noticed that patient had bursts of such episodes on few occasions since she has been on the monitor. They have all been nonsustained. 1:10 PM I discussed the case with Dr. Barreto who wants the patient to be transferred to the [facility] hospital, keep her n.p.o. and probably prepared to get a pacemaker placed. Critical Care Narrative Aggregate critical care time was 30 minutes. Time to perform other separately billable procedures was not included in the critical care time. My time did not include minutes spent treating any other patients simultaneously or on activities that did not directly contribute to the patient's treatment. The services I provided to this patient were to treat and/or prevent clinically significant deterioration that could result in: Third-degree heart block I provided critical care services requiring my management, as noted below: Chart data review, documentation time, medication orders and management, vital sign assessments/reviewing monitor data, ordering and reviewing lab tests, ordering and interpreting/reviewing x-rays and diagnostic studies, care of the patient and discussion of the patient with the admitting physicians. Procedures EKG Prior to Arrival: No Diagnosis Primary Impression: Chest pain Qualified Codes: R07.9 - Chest pain, unspecified Additional Impressions: Syncope Qualified Codes: R55 - Syncope and collapse Third degree heart block Admitting Information Admitting Physician Requests: Observation Opal Isbell MD January 27, 2018 10:04
[2018-01-27] MEDS ORDERED: PAXI10TA8 PO (10:08)
[2018-01-27] MEDS ORDERED: SODIUM CHLOR 0.9% 1000 ML INJ 1,000 ML IV ONE (10:33)
[2018-01-27] MEDS ORDERED: SODIUM CHLORIDE 0.9% FLUSH 10 ML FLUSH IVF PRN (10:45)
[2018-01-27] MEDS ORDERED: METOCLOPRAMIDE HCL 10 MG/2 ML VIAL IV PUSH ONE (10:45)
[2018-01-27 10:48] LABS: AUTOMATED NEUTROPHIL # 10.1 TH/MM3 (1.8-7.7); BASOPHIL % 0.4 % (0.0-2.0); EOSINOPHIL % 0.3 % (0.0-4.0); HEMATOCRIT 40.2 % (35.0-46.0); HEMOGLOBIN 13.5 GM/DL (11.6-15.3); LYMPH % 11.6 % (9.0-44.0); LYMPHOCYTE # 1.4 TH/MM3 (1.0-4.8); MEAN CELL VOLUME 97.5 FL (80.0-100.0); MEAN CORPUSCULAR HEMOGLOBIN 32.8 PG (27.0-34.0); MEAN CORPUSCULAR HGB CONC 33.7 % (32.0-36.0); MEAN PLATELET VOLUME 8.9 FL (7.0-11.0); MONO % 2.2 % (0.0-8.0); MONOCYTE # 0.3 TH/MM3 (0-0.9); NEUT % 85.5 % (16.0-70.0); PLATELET COUNT 241 TH/MM3 (150-450); RED BLOOD COUNT 4.12 MIL/MM3 (4.00-5.30); RED CELL DISTRIBUTION WIDTH 11.9 % (11.6-17.2); WHITE BLOOD COUNT 11.8 TH/MM3 (4.0-11.0)
[2018-01-27 10:55] LABS: CHLORIDE 106 MEQ/L (98-107); SODIUM (NA) 138 MEQ/L (136-145)
[2018-01-27 10:57] LABS: CALCIUM 8.7 MG/DL (8.5-10.1)
[2018-01-27 10:58] LABS: BICARBONATE 26.3 MEQ/L (21.0-32.0); BLOOD UREA NITROGEN 11 MG/DL (7-18); GLUCOSE,RANDOM 134 MG/DL (74-106)
[2018-01-27 11:00] LABS: PROTHROMBIN TIME - PATIENT 10.1 SEC (9.8-11.6)
[2018-01-27 11:02] LABS: CREATININE 0.66 MG/DL (0.50-1.00); GLOMERULAR FILTRATION RATE 99 ML/MIN (>89)
[2018-01-27 11:06] LABS: TROPONIN I LESS THAN 0.02 NG/ML (0.02-0.05)
--- NOTE | 2018-01-27 11:09 | RADRPT ---
EXAM DATE: 01/27/2018 10:57 AM EDT AGE/SEX: 42 years / Female INDICATIONS: Chest pain, vomiting. CLINICAL DATA: This is the patient's initial encounter. Patient reports that signs and symptoms have been present for 1 day and indicates a pain score of 2/10. MEDICAL/SURGICAL HISTORY: Renal calculi. Breast augmentation. Tubal ligation. COMPARISON: [facility], CHEST SINGLE AP, 08/15/2017. . FINDINGS: A single AP view of the chest demonstrates the lungs to be symmetrically aerated without e vidence of mass, infiltrate or effusion. The cardiomediastinal contours are unremarkable. Osseous s tructures are intact. CONCLUSION: 1. Stable exam 2. No evidence of acute process. Electronically signed by: Marlo Lewis MD 01/27/2018 11:07 AM EDT
--- NOTE | 2018-01-27 11:30 | RADRPT ---
EXAM DATE: 01/27/2018 11:22 AM EDT AGE/SEX: 42 years / Female INDICATIONS: Dizziness and chest pain. CLINICAL DATA: This is the patient's initial encounter. Patient reports that signs and symptoms have been present for 1 day and indicates a pain score of 0/10. MEDICAL/SURGICAL HISTORY: Renal calculi. Tubal ligation. Ureteral stent. RADIATION DOSE: 60.59 CTDI (mGy) COMPARISON: [facility], CT BRAIN W/O CONTRAST, 08/15/2017. . TECHNIQUE: CT of the head without contrast. Using automated exposure control and adjustment of the mA and/or kV according to patient size, radiation dose was kept as low as reasonably achievable to ob tain optimal diagnostic quality images. FINDINGS: Cerebrum: The ventricles are normal for age. No evidence of midline shift, mass lesion, hemorrhage or acute infarction. No extraaxial fluid collections are seen. Posterior Fossa: The cerebellum and brainstem are intact. The 4th ventricle is midline. The cerebe llopontine angle is unremarkable. Extracranial: The visualized portion of the orbits is intact. Skull: The calvaria is intact. No evidence of skull fracture. Post Contrast: No abnormal areas of parenchymal or dural enhancement. No evidence of blood-brain ba rrier breakdown. CONCLUSION: 1. Unremarkable and stable CT scan of the brain. No significant changes compared to the prior study. Electronically signed by: Anil Ovalle MD 01/27/2018 11:29 AM EDT
[2018-01-27 12:32] LABS: BILIRUBIN, URINE NEG (NEG); BLOOD, URINE TRACE (NEG); GLUCOSE,URINE NEG (NEG); KETONE, URINE 15 mg/dL (NEG); NITRITE,URINE NEG (NEG); URINE COLOR YELLOW (YELLW/STRAW); URINE LEUKOCYTE ESTERASE NEG (NEG)
[2018-01-27 12:37] LABS: WBC, URINE 0-2 /hpf (0-5)
[2018-01-27 12:38] LABS: BACTERIA, URINE FEW /hpf
--- NOTE | 2018-01-27 13:59 | EKG ---
Date Performed: 01/27/2018 Time Performed: 12:56:36 PTAGE: 42 years EKG: Baseline artifact present SINUS BRADYCARDIA POSSIBLE RIGHT VENTRICULAR CONDUCTION DELAY BOR DERLINE ECG Compared to prior electrocardiogram, probably No significant change from prior electroca rdiogram. . PREVIOUS TRACING : 01/27/2018 09.59 DOCTOR: Chas Clarke Interpretating Date/Time 01/27/2018 13:57:51
[2018-01-27] MEDS ORDERED: ONDANSETRON HCL 4 MG/2 ML VIAL ONE (15:22)
[2018-01-27] MEDS: SODIUM CHLOR 0.9% 1000 ML INJ 1,000 ML IV SCH (15:57)
[2018-01-27] MEDS ORDERED: NURSING INFORMATION XX SCH (16:00)
[2018-01-27] MEDS ORDERED: RESP: ALBUTEROL 2.5 MG/IPRATROPIUM 0.5 MG NEB (PRN) INH (16:00)
[2018-01-27] MEDS ORDERED: SODIUM CHLORIDE 0.9% FLUSH 10 ML FLUSH IV FLUSH PRN (16:00)
[2018-01-27] MEDS ORDERED: CHLORHEXIDINE GLUCONATE 2 % 1 PACK (2 CLOTHS) TOP PRN (16:00)
[2018-01-27] MEDS ORDERED: SODIUM PHOSPHATE INJ 30 MMOL in SODIUM CHLOR 0.9% 250 ML INJ 240 ML IV PRN (16:15)
[2018-01-27] MEDS ORDERED: MAGNESIUM OXIDE 400 MG TAB PO PRN (16:15)
[2018-01-27] MEDS ORDERED: ONDANSETRON ODT 4 MG TAB PO PRN (16:15)
[2018-01-27] MEDS ORDERED: POTASSIUM CHLOR 20 MEQ PREMIX 100 ML IV PRN ×2 (16:15)
[2018-01-27] MEDS ORDERED: TERBUTALINE INJ 1 MG/ML AMP SQ PRN (16:15)
[2018-01-27] MEDS ORDERED: POTASSIUM PHOSPHATE INJ 30 MMOL in SODIUM CHLOR 0.9% 250 ML INJ 250 ML IV PRN (16:15)
[2018-01-27] MEDS ORDERED: POTASSIUM CHLORIDE 25 MEQ EFFERVESCENT TAB PO PRN (16:15)
[2018-01-27] MEDS ORDERED: POTASSIUM CHLOR 40 MEQ PREMIX 100 ML IV PRN ×2 (16:15)
[2018-01-27] MEDS ORDERED: MAGNESIUM SULFATE INJ 2 GM in SODIUM CHLORIDE 0.9% INJ 96 ML IV PRN (16:15)
[2018-01-27] MEDS ORDERED: MAGNESIUM SULFATE INJ 4 GM in SODIUM CHLORIDE 0.9% INJ 92 ML IV PRN (16:15)
[2018-01-27] MEDS ORDERED: POTASSIUM PHOSPHATE MONOBASIC 500 MG TAB PO PRN (16:15)
[2018-01-27] MEDS ORDERED: DOPamine 800 MG/500 ML INJ 500 ML IV PRN (16:15)
[2018-01-27] MEDS ORDERED: POTASSIUM PHOSPHATE MONOBASIC 500 MG TAB PO/TUBE PRN (16:15)
--- NOTE | 2018-01-27 16:17 | HHI.HP ---
HPI Service Critical Care Medicine Primary Care Physician Mustapha Gomez MD Admission Diagnosis Chest pain, rule out ACS Diagnosis: (1) Third degree heart block Diagnosis: Principal (2) Syncope Diagnosis: Principal (3) Chest pain Diagnosis: Principal (4) Anxiety Diagnosis: Secondary (5) Nausea & vomiting Diagnosis: Secondary (6) Depression Diagnosis: Secondary Chief Complaint: Dizziness/syncope Third-degree heart block Travel History International Travel<30 Days: No Contact w/Intl Traveler <30 Da: No Traveled to Known Affected Are: No History of Present Illness Patient is a 42-year-old female with past medical history significant for depression on Paxil, on Jinteli HRT who presented to the [place] emergency department with syncope and intermittent chest pain since associated nausea and left arm pain. Patient was driving back from aspnet developer Dr. Fernandez's office when the symptoms got worse. She pulled over at her friend's driveway and was walking towards her house when she passed out. Her friend brought patient in to the [place] emergency department. Had similar symptoms in the past where she had lost consciousness. Initial EKG showed sinus bradycardia with intraventricular conduction delay. Patient was initially to be admitted to the chest pain unit, but she developed sudden onset feeling of discomfort with diaphoresis and passed out while in the ED. The rhythm strip showed third- degree heart block which was transient. Pacer pads were applied and cardiology Dr. Barreto was consulted, who recommended transfer to the [facility]. According to Dr. Isbell patient had multiple episodes of third- degree heart block on the monitor I evaluated the patient in the CVICU after she was transferred here. She is diaphoretic and nauseous, monitor shows sinus rhythm heart rate 60-70. I have contacted Dr. Barreto who recommends consulting java web engineer Dr. Murphy. Continue pacer pads as a precaution, I have also added dopamine if needed to keep heart rate above 45. No indication for temporary pacemaker wire at this time. Review of Systems ROS Limitations: Other (as per HPI) Past Family Social History Allergies: Coded Allergies: No Known Allergies (Verified Allergy, Unknown, 01/27/18) NKA Past Medical History Depression Nephrolithiasis Previous episodes of syncope Past Surgical History Cystoscopy and ureteral stent placement Lithotripsy D&C, tubal ligation Bilateral breast implants Reported Medications Paxil (Paroxetine HCl) 10 Mg Tab 10 Mg PO HS Jinteli 1/5 (Norethindrone-Ethinyl Estradiol) 1-5 Mg-Mcg Tab 0.5 Tab PO DAILY Active Ordered Medications Reviewed Family History No history of coronary artery disease or bradycardia Social History Smokes marijuana daily No alcohol or tobacco use Physical Exam Vital Signs Vital Signs Date Time Temp Pulse Resp B/P (MAP) Pulse Ox O2 Delivery O2 Flow Rate FiO2 01/27/18 15:18 77 01/27/18 14:00 62 01/27/18 13:39 64 15 120/64 (82) 97 01/27/18 12:33 65 16 122/67 (85) 100 Room Air 01/27/18 10:05 100 01/27/18 10:05 69 16 100 01/27/18 10:03 97.9 69 16 132/64 (86) 100 Physical Exam GENERAL: Awake, alert, anxious female who is lying in bed diaphoretic SKIN: Warm and diaphoretic. HEAD: Atraumatic. Normocephalic. EYES: Pupils equal and round. No scleral icterus. No injection or drainage. ENT: No nasal bleeding or discharge. Mucous membranes pink and moist. NECK: Trachea midline. No JVD. CARDIOVASCULAR: Regular rate and rhythm. No murmur appreciated. Currently sinus rhythm with heart rate 70 bpm. Transcutaneous pacer pads in place RESPIRATORY: No accessory muscle use. Clear to auscultation. Breath sounds equal bilaterally. GASTROINTESTINAL: Abdomen soft, non-tender, nondistended. Hepatic and splenic margins not palpable. MUSCULOSKELETAL: No obvious deformities. No clubbing. NEUROLOGICAL: Awake and alert. No obvious cranial nerve deficits. Motor grossly within normal limits. Normal speech. Laboratory Laboratory Tests Test 01/27/18 10:00 White Blood Count 11.8 Red Blood Count 4.12 Hemoglobin 13.5 Hematocrit 40.2 Mean Corpuscular Volume 97.5 Mean Corpuscular Hemoglobin 32.8 Mean Corpuscular Hemoglobin Concent 33.7 Red Cell Distribution Width 11.9 Platelet Count 241 Mean Platelet Volume 8.9 Neutrophils (%) (Auto) 85.5 Lymphocytes (%) (Auto) 11.6 Monocytes (%) (Auto) 2.2 Eosinophils (%) (Auto) 0.3 Basophils (%) (Auto) 0.4 Neutrophils # (Auto) 10.1 Lymphocytes # (Auto) 1.4 Monocytes # (Auto) 0.3 Eosinophils # (Auto) 0.0 Basophils # (Auto) 0.0 CBC Comment DIFF FINAL Differential Comment Prothrombin Time 10.1 Prothromb Time International Ratio 1.0 Urine Color YELLOW Urine Turbidity CLEAR Urine pH 7.0 Urine Specific [place] 1.020 Urine Protein NEG Urine Glucose (UA) NEG Urine Ketones 15 Urine Occult Blood TRACE Urine Nitrite NEG Urine Bilirubin NEG Urine Urobilinogen 0.2 Urine Leukocyte Esterase NEG Urine WBC 0-2 Urine Squamous Epithelial Cells 6-8 Urine Bacteria FEW Microscopic Urinalysis Comment CULT NOT INDICATED Blood Urea Nitrogen 11 Creatinine 0.66 Random Glucose 134 Calcium Level 8.7 Sodium Level 138 Potassium Level 3.6 Chloride Level 106 Carbon Dioxide Level 26.3 Anion Gap 6 Estimat Glomerular Filtration Rate 99 Troponin I LESS THAN 0.02 Thyroid Stimulating Hormone 3rd Gen 0.486 Result Diagram: 01/27/18 1000 01/27/18 1000 Imaging Chest x-ray and CT did not show any evidence of acute findings Septic Shock Reassessment Septic shock perfusion: reassessment completed Caprini VTE Risk Assessment Caprini VTE Risk Assessment: Mod/High Risk (score >= 2) Caprini Risk Assessment Model Point Value = 1 Point Value = 2 Point Value = 3 Point Value = 5 Age 41-60 Minor surgery BMI > 25 kg/m2 Swollen legs Varicose veins or History of unexplained or recurrent spontaneous Oral contraceptives or hormone replacement Sepsis (< 1 month) Serious lung disease, including pneumonia (< 1 month) Abnormal pulmonary function Acute myocardial infarction Congestive heart failure (< 1 month) History of inflammatory bowel disease Medical patient at bed rest Age 61-74 Arthroscopic surgery Major open surgery (> 45 min) Laparoscopic surgery (> 45 min) Malignancy Confined to bed (> 72 hours) Immobilizing plaster cast Central venous access Age >= 75 History of VTE Family history of VTE Factor V Leiden Prothrombin [id number] Lupus anticoagulant Anticardiolipin antibodies Elevated serum homocysteine Heparin-induced thrombocytopenia Other congenital or acquired thrombophilia Stroke (< 1 month) Elective arthroplasty Hip, pelvis, or leg fracture Acute spinal cord injury (< 1 month) Prophylaxis Regimen Total Risk Factor Score Risk Level Prophylaxis Regimen 0-1 Low Early ambulation 2 Moderate Order ONE of the following: *Sequential Compression Device (SCD) *Heparin 5000 units SQ BID 3-4 Higher Order ONE of the following medications: *Heparin 5000 units SQ TID *Enoxaparin/Lovenox 40 mg SQ daily (WT < 150 kg, CrCl > 30 mL/min) *Enoxaparin/Lovenox 30 mg SQ daily (WT < 150 kg, CrCl > 10-29 mL/min) *Enoxaparin/Lovenox 30 mg SQ BID (WT < 150 kg, CrCl > 30 mL/min) AND/OR *Sequential Compression Device (SCD) 5 or more Highest Order ONE of the following medications: *Heparin 5000 units SQ TID (Preferred with Epidurals) *Enoxaparin/Lovenox 40 mg SQ daily (WT < 150 kg, CrCl > 30 mL/min) *Enoxaparin/Lovenox 30 mg SQ daily (WT < 150 kg, CrCl > 10-29 mL/min) *Enoxaparin/Lovenox 30 mg SQ BID (WT < 150 kg, CrCl > 30 mL/min) AND *Sequential Compression Device (SCD) Assessment and Plan Assessment and Plan NEURO: History of depression/anxiety Syncope -Hold home medications citalopram, Jinteli -Zofran for nausea and vomiting -Counseled against daily marijuana use -CT head negative for acute finding. Syncope secondary to third-degree heart block RESP: -Nasal cannula oxygen if needed to keep saturation above 92% -DuoNeb every 6 hours as needed CV: Third-degree heart block -EKG strips reveal clearly that patient had intermittent third-degree heart block -I am unable to find any medications or reversible reasons which could have caused third-degree heart block, which may indicate a conduction system disorder -General cardiology Dr. Barreto consulted and discussed with by Dr. Isbell -I will consult EP Dr. Murphy for pacemaker evaluation -Continue transcutaneous pacer -Await 2d echo -Use Lisniopril or dopamine to keep heart rate above 45 -No indication for temporary pacemaker at this time -TSH Normal GI: Nausea/vomiting -Keep n.p.o. until evaluated by cardiology/EP -Famotidine for GI prophylaxis -Zofran for nausea : History of nephrolithiasis -Monitor renal function closely. [place]worth catheter. ID: -No indication for antibiotics, no infectious etiology identified HEME: -Monitor CBC, coags ENDO: -Electrolyte replacement per protocol PROPH: -Bilateral lower extremity SCDs. Hold chemical DVT prophylaxis until seen by java web engineer LINES: -Utilize peripheral IVs, central line if needed CC time 35 min Code Status Full code Discussed Condition With Jordon Isbell and Mary Lou Problem Qualifiers (1) Syncope: Qualified Codes: R55 - Syncope and collapse (2) Chest pain: Qualified Codes: R07.9 - Chest pain, unspecified Faiza Bravo MD January 27, 2018 16:17
[2018-01-27] MEDS ORDERED: ATROPINE SULFATE 0.4 MG/ML VIAL IV PUSH PRN (16:45)
[2018-01-27] MEDS: ENOXAPARIN SODIUM 40 MG/0.4 ML SYRINGE SQ SCH (17:17)
--- NOTE | 2018-01-27 18:03 | MB ---
cc: Miguel Barreto MD, Arthur W MD DATE: 01/27/2018 HISTORY OF PRESENT ILLNESS: Jessica is a very pleasant 42-year-old young lady with history of syncope in the past associated with nausea and vomiting. She does not think she is . She has had a tubal ligation. She presents to the ER at [place] with chief complaint of chest pain, nausea, vomiting, pain going down the left arm. She was put on hormonal therapy by Dr. Fernandez. She was walking out of her car to her friend's house and had a syncopal event. Otherwise, denies any fever, chills, cough, or GI bleeding, PND, orthopnea. PAST MEDICAL HISTORY: Per history of present illness. She has a history of depression, kidney stone, 3, para 3, tubal ligation in 2006, D and C in the past, cystoscopy and ureteral stent, D and C x2, bilateral breast implants, 2 stents placed in the right kidney. SOCIAL HISTORY: Denies tobacco or alcohol use. She does smoke marijuana. ALLERGIES: NONE. MEDICATIONS PRIOR TO ADMISSION: Jayla Hall MEDICATIONS IN THE HOSPITAL: Pepcid 20 mg IV q 12 hrs, potassium supplementation, magnesium oxide p.r.n. PHYSICAL EXAMINATION: VITAL SIGNS: Pulse ranging between 64 and 77, sats 97% on room air, respiratory rate 15, temperature 97.9. GENERAL: She is alert and oriented x 3, in no acute distress. NECK: Supple. No JVD. No bruit. CARDIOVASCULAR: S1, S2. No murmurs, rubs or gallops. LUNGS: Clear to auscultation bilaterally. ABDOMEN: Soft, nontender, nondistended with positive bowel sounds. EXTREMITIES: No lower extremity edema. A telemetry strip at [place] is reported to show third degree heart block during a possible syncopal and/or seizure event. LABORATORY DATA: White count 11.8, hemoglobin 13.5, hematocrit 40.2, platelet count 241. INR 1.0. Sodium 138, potassium 3.6, chloride 106, bicarbonate 26.3, BUN 11, creatinine 0.66. TSH is 0.486, troponin 0.02, glucose 134. CARDIOLOGY STUDIES: EKG: Normal sinus rhythm at 58 beats per minute. QT corrected interval was 401 milliseconds. Repeat EKG: Normal sinus rhythm at 66 beats per minute. Normal corrected QT interval. IMAGING STUDIES: Head CT: Unremarkable and stable CT scan of the brain. No significant changes compared to prior study. Chest x-ray: Stable exam. No evidence of acute process. DIAGNOSES: 1. Syncope. 2. Possible third degree heart block. 3. Possible seizure. 4. Marijuana abuse. 5. Chest pain. DISCUSSION: At this point in time, her history suggests that she had maybe a vagal event. Nevertheless, we will admit her to do planned telemetry monitoring. Consult Dr. Murphy. Also get a neurology consult. MD HARVEY Lynn/ , 05:26 PM , 06:01 PM
[2018-01-27 18:19] LABS: MAGNESIUM 1.9 MG/DL (1.5-2.5); PHOSPHORUS 1.6 MG/DL (2.5-4.9)
[2018-01-27 18:34] LABS: TROPONIN I LESS THAN 0.02 NG/ML (0.02-0.05)
[2018-01-27] MEDS ORDERED: ONDANSETRON HCL 4 MG/2 ML VIAL IV PUSH PRN (20:30)
[2018-01-27] MEDS: SODIUM CHLORIDE 0.9% FLUSH 10 ML FLUSH IV FLUSH SCH (20:58)
[2018-01-27] MEDS: FAMOTIDINE 20 MG/2 ML VIAL IV PUSH SCH (20:58)
[2018-01-28] VITALS (16 sets, daily range): BP systolic 110–140; BP diastolic 51–72; PULSE 54–89; RESP 14–20; TEMP 98.2–98.7; O2SAT 98–99
[2018-01-28] MEDS: CHLORHEXIDINE GLUCONATE 2 % 1 PACK (2 CLOTHS) TOP SCH (04:00)
[2018-01-28] MEDS: SODIUM CHLOR 0.9% 1000 ML INJ 1,000 ML IV SCH ×3 (04:16→20:39)
[2018-01-28 05:43] LABS: AUTOMATED NEUTROPHIL # 4.7 TH/MM3 (1.8-7.7); BASOPHIL % 0.3 % (0.0-2.0); EOSINOPHIL % 0.2 % (0.0-4.0); HEMATOCRIT 36.2 % (35.0-46.0); HEMOGLOBIN 12.3 GM/DL (11.6-15.3); LYMPH % 21.7 % (9.0-44.0); LYMPHOCYTE # 1.5 TH/MM3 (1.0-4.8); MEAN CELL VOLUME 97.5 FL (80.0-100.0); MEAN CORPUSCULAR HEMOGLOBIN 33.1 PG (27.0-34.0); MEAN CORPUSCULAR HGB CONC 33.9 % (32.0-36.0); MEAN PLATELET VOLUME 8.6 FL (7.0-11.0); MONO % 8.4 % (0.0-8.0); MONOCYTE # 0.6 TH/MM3 (0-0.9); NEUT % 69.4 % (16.0-70.0); PLATELET COUNT 218 TH/MM3 (150-450); RED BLOOD COUNT 3.71 MIL/MM3 (4.00-5.30); RED CELL DISTRIBUTION WIDTH 12.1 % (11.6-17.2); WHITE BLOOD COUNT 6.8 TH/MM3 (4.0-11.0)
[2018-01-28 05:46] LABS: INTERNATIONAL NORMALIZED RATIO 1.1 RATIO; PROTHROMBIN TIME - PATIENT 10.9 SEC (9.8-11.6)
[2018-01-28 06:00] LABS: ALBUMIN 3.4 GM/DL (3.4-5.0); AST (GOT) 14 U/L (15-37); BICARBONATE 22.3 MEQ/L (21.0-32.0); BLOOD UREA NITROGEN 7 MG/DL (7-18); CALCIUM 8.3 MG/DL (8.5-10.1); CHLORIDE 108 MEQ/L (98-107); CREATININE 0.66 MG/DL (0.50-1.00); GLOMERULAR FILTRATION RATE 99 ML/MIN (>89); GLUCOSE,RANDOM 102 MG/DL (74-106); SODIUM (NA) 142 MEQ/L (136-145)
[2018-01-28 06:01] LABS: ALT (GPT) 16 U/L (10-53)
[2018-01-28 06:07] LABS: ALKALINE PHOSPHATASE 42 U/L (45-117); PHOSPHORUS 2.3 MG/DL (2.5-4.9); TOTAL BILIRUBIN ADULT 0.6 MG/DL (0.2-1.0); TOTAL PROTEIN 6.2 GM/DL (6.4-8.2); TROPONIN I LESS THAN 0.02 NG/ML (0.02-0.05)
--- NOTE | 2018-01-28 09:04 | HHI.CCPN ---
Subjective Remarks/Hospital Course Hospital Course: Patient is a 42-year-old female with past medical history significant for depression on Paxil, on Jinteli HRT who presented to the [place] emergency department with syncope and intermittent chest pain since associated nausea and left arm pain. Patient was driving back from dimension specification inspector Dr. Fernandez's office when the symptoms got worse. She pulled over at her friend's driveway and was walking towards her house when she passed out. Her friend brought patient in to the [place] emergency department. Had similar symptoms in the past where she had lost consciousness. Initial EKG showed sinus bradycardia with intraventricular conduction delay. Patient was initially to be admitted to the chest pain unit, but she developed sudden onset feeling of discomfort with diaphoresis and passed out while in the ED. The rhythm strip showed third- degree heart block which was transient. Pacer pads were applied and cardiology Dr. Barreto was consulted, who recommended transfer to the [facility]. According to Dr. Isbell patient had multiple episodes of third- degree heart block on the monitor I evaluated the patient in the CVICU after she was transferred here. She is diaphoretic and nauseous, monitor shows sinus rhythm heart rate 60-70. I have contacted Dr. Barreto who recommends consulting sports medicine coordinator Dr. Murphy. Continue pacer pads as a precaution, I have also added dopamine if needed to keep heart rate above 45. No indication for temporary pacemaker wire at this time. Subjective: 01/28: doing well. no more episodes of 3rd degree HB. Dr. Nolan to see today. ROS negative. she does state that this happens maybe once a week or so, and she either passes out or has pre-syncopal symptoms, nausea. She expressed she really does not want a pacemaker, but I discussed the possibility of syncope while driving and the dangers associated with significant loss of function during these heart block episodes. She is more amenable to PPM if needed. Objective Vital Signs Date Time Temp Pulse Resp B/P (MAP) Pulse Ox O2 Delivery O2 Flow Rate FiO2 01/28/18 07:41 98.6 67 20 131/72 (91) 98 01/27/18 12:33 Room Air Intake and Output 01/28/18 01/28/18 01/29/18 08:00 16:00 00:00 Intake Total 1683 ml Balance 1683 ml Result Diagram: 01/28/18 0442 01/28/18 044 Imaging Chest x-ray and CT did not show any evidence of acute findings Objective Remarks GENERAL: Awake, alert, anxious female who is sitting in bed. no acute distress this morning. SKIN: Warm and diaphoretic. HEAD: Atraumatic. Normocephalic. EYES: Pupils equal and round. No scleral icterus. No injection or drainage. ENT: No nasal bleeding or discharge. Mucous membranes pink and moist. NECK: Trachea midline. No JVD. CARDIOVASCULAR: Regular rate and rhythm. Currently sinus rhythm with heart rate 70 bpm. Transcutaneous pacer pads in place RESPIRATORY: No accessory muscle use. room air. GASTROINTESTINAL: Abdomen soft, non-tender, nondistended. MUSCULOSKELETAL: No obvious deformities. No clubbing. NEUROLOGICAL: Awake and alert. No obvious cranial nerve deficits. Motor grossly within normal limits. Normal speech. A/P Assessment and Plan Assessment: 42yF with paroxysmal 3rd degree heart block causing associated end- organ dysfunction from hypoperfusion and syncope, nausea, vomiting. EP to see today. Can leave ICU with telemetry and Zoll Pads in place. From my standpoint, it seems the patient may benefit from pacemaker given this is a chronic problem , but ultimately will be up to the expertise of electrophysiology. NEURO: History of depression/anxiety Syncope -Hold home medications citalopram, Jinteli -Zofran for nausea and vomiting -Counseled against daily marijuana use -CT head negative for acute finding. Syncope secondary to third-degree heart block RESP: -Nasal cannula oxygen if needed to keep saturation above 92% -DuoNeb every 6 hours as needed CV: Third-degree heart block -EKG strips reveal clearly that patient had intermittent third-degree heart block -I am unable to find any medications or reversible reasons which could have caused third-degree heart block, which may indicate a conduction system disorder -General cardiology Dr. Barreto consulted and discussed with by Dr. Isbell - EP Dr. Murphy for pacemaker evaluation -Continue transcutaneous pacer -Await 2d echo -Use dopamine to keep heart rate above 45 -No indication for temporary pacemaker at this time -TSH Normal GI: Nausea/vomiting -NPO after breakfast for possible PPM. -Famotidine for GI prophylaxis -Zofran for nausea : History of nephrolithiasis -Monitor renal function closely. d/c braden ID: -No indication for antibiotics, no infectious etiology identified HEME: -Monitor CBC, coags ENDO: -Electrolyte replacement per protocol PROPH: -Bilateral lower extremity SCDs. Hold chemical DVT prophylaxis until seen by sports medicine coordinator LINES: -Utilize peripheral IVs Dispo: safe to transfer out of ICU. consult hospitalist to assume care. Salvatore Padgett MD January 28, 2018 09:04
[2018-01-28] MEDS: FAMOTIDINE 20 MG/2 ML VIAL IV PUSH SCH ×2 (09:44→20:39)
[2018-01-28] MEDS: SODIUM CHLORIDE 0.9% FLUSH 10 ML FLUSH IV FLUSH SCH ×2 (09:45→20:39)
[2018-01-28 12:09] LABS: TROPONIN I LESS THAN 0.02 NG/ML (0.02-0.05)
--- NOTE | 2018-01-28 13:50 | MB ---
cc: Nadya Penny MD DATE: 01/28/2018 REASON FOR CONSULTATION: Syncope. HISTORY OF PRESENT ILLNESS: This is a 42-year-old woman with a history of some depression on Paxil and Jinteli HRT, when to [place] yesterday ER just not feeling right. She initially was not feeling right a few days prior, had spoken to her OUTPATIENT PHYSICAL THERAPIST, Dr. Fernandez, who put her on medication. Subsequently, after that she started having some strange feeling of anxiety. was able to see him and he thought she was having a panic attack, told her to go home and take her Xanax. She has decided not to go home and went to her friend's house so she could just relax there and started to feel nauseated. When she gets that feeling, she usually sits down and helps herself vomit. She did not lose consciousness, she states. She did not bite her tongue. She did not have any postictal events or loss of memory. Apparently it states here that she has some chest pain and diaphoresis and passed out in the ED. She did not mention this to me. States that she had a third degree block which was transient. She was seen by cardiology and will be seen by interventional cardiology later today. She was transferred to CV ICU, seen by the building construction supervisor, sinus rhythm was seen at that point in time. He had also added some dopamine to keep her heart rate above 45 and a temporary pacer wire was placed. Today, she is sitting in a chair in the cardiovascular unit, doing well. She has not had any further episodes, waiting on Dr. Weber. No nausea. No anxiety. No chest pain, no pressure or weakness. PAST MEDICAL HISTORY: She has no significant past medical history otherwise, except for some anxiety and possible mild depression. MEDICATIONS: Only medicines are as stated. ALLERGIES: NONE REPORTED. PAST SURGICAL HISTORY: Cystoscopy and ureteral stents placed, lithotripsy, D and C, breast implants. FAMILY HISTORY: Negative. SOCIAL HISTORY: Smokes marijuana daily. She is single, has 3 children. No tobacco or alcohol. PHYSICAL EXAMINATION: VITAL SIGNS: Temperature is 98.6, pulse 67, respiratory rate 20, blood pressure 131/72. NECK: Supple, no bruits. HEART: Regular. NEUROLOGIC: Awake, alert. She is oriented. She is fluent. Pupils reactive. Visual ramsey full. Face symmetrical. Tongue midline. Motor: No drift or leg lag. [id number] no past pointing. DTRs are 2+. Toes are downgoing. Sensory is normal. Gait is withheld at this time. LABORATORY DATA: Labs were reviewed. Her CBC is really unremarkable today. Coag panel is normal. Chemistries this morning, her potassium is 3, calcium 8.3, phosphorus 2.3, ALT 16, AST 14. Three sets of troponin that were negative. TSH is normal. Beta hCG is negative. Urine, no culture indicated. IMAGING STUDIES: CT head was unremarkable. Her chest x-ray shows no acute process. IMPRESSION: Possible third degree block. We will defer any recommendations and treatment options with inspector filters. I do not believe that she had a seizure. No evidence that she did. She may have had a vasovagal response after throwing up or from the nausea. However, I will go ahead and get an EEG and continue current care per other consultants. MD SHANNON Zimmerman/PRINCESS , 01:01 PM , 01:49 PM
[2018-01-28] MEDS: ENOXAPARIN SODIUM 40 MG/0.4 ML SYRINGE SQ SCH (16:00)
--- NOTE | 2018-01-28 18:34 | MB ---
cc: Sherrill Murphy MD, Hanscy MD John,Faiza Gomez,Mustapha Barreto,Miguel Meng MD DATE: 01/28/2018 REASON FOR CONSULTATION: Third degree AV block and syncope. HISTORY OF PRESENT ILLNESS: Mrs. Aguirre is a 42-year-old female who experienced episode of syncope in the past. The last one was around 5 years ago. She was with her friend at the mall. She refers some upset stomach, felt dizzy like she was going to pass out. At the friend's insistence, she decided to come to the emergency room. She was evaluated and admitted. Apparently, there is what appeared to be noise versus AV dissociation observed. The patient was evaluated by rn review. I was consulted for further evaluation and management and for possible pacer insertion. The chart was reviewed. The patient was evaluated. I did have a very long conversation with Mrs. Aguirre. ALLERGIES: NONE. SOCIAL HISTORY: Social drinker occasionally, smokes pot occasionally. FAMILY HISTORY: Noncontributory to her current medical condition. MEDICATIONS: She is taking Paxil and control pill. REVIEW OF SYSTEMS: She referred feeling anxious. No chest pain, no chest discomfort. No fever. PHYSICAL EXAMINATION: GENERAL: Alert, fully oriented. VITAL SIGNS: Her blood pressure on evaluation was 140/65, pulse 56, respiratory rate 18. LUNGS: Ventilated. CARDIOVASCULAR: S1, S2. No gallop. No murmur. ABDOMEN: Soft. No masses. No bruit. EXTREMITIES: No edema. CARDIOLOGY STUDIES: Electrocardiogram - Sinus rhythm, No acute ST and T-wave changes. Electrical interference. LABORATORY DATA: Hemoglobin 12.3, white blood cell 6.8. Potassium is 3.0, creatinine is 0.66. Troponin less than 0.02. TSH 0.486. ASSESSMENT AND RECOMMENDATIONS: Mrs. Aguirre currently is stable. 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 She refers some upset stomach and near syncope 5 years ago and, since then, no other episode. She refers she had some upset stomach and then felt like she was going to pass out. She never experienced a full syncopal episode. The whole description sounds like a vagal episode. Also, during hospitalization there was "third degree AV block observed". There is 3 beats of what appeared to be noise versus some kind of atrial arrhythmia but she has now QRS. The whole monitoring since then shows sinus rhythm. At this point, my recommendation is observation. No need for further intervention. The patient as having an electroencephalogram. She has a normal ejection fraction. If more information and there is any concern about future episodes of syncope, then a loop recorder should be inserted. That decisions will be made by neurologist as well as Dr. Barreto. Case extensively discussed with her. At this point, as mentioned before, no need for pacemaker. I will follow her during hospitalization if necessary. MD FELECIA Becerra/ , 05:31 PM , 06:32 PM
[2018-01-29] VITALS (14 sets, daily range): BP systolic 114–131; BP diastolic 54–72; PULSE 52–65; RESP 16–18; TEMP 98.2–98.4; O2SAT 98–99
[2018-01-29] MEDS: CHLORHEXIDINE GLUCONATE 2 % 1 PACK (2 CLOTHS) TOP SCH (03:40)
[2018-01-29 03:57] LABS: HEMATOCRIT 34.6 % (35.0-46.0); HEMOGLOBIN 11.9 GM/DL (11.6-15.3); MEAN CELL VOLUME 97.5 FL (80.0-100.0); MEAN CORPUSCULAR HEMOGLOBIN 33.4 PG (27.0-34.0); MEAN CORPUSCULAR HGB CONC 34.3 % (32.0-36.0); MEAN PLATELET VOLUME 8.5 FL (7.0-11.0); PLATELET COUNT 198 TH/MM3 (150-450); RED BLOOD COUNT 3.55 MIL/MM3 (4.00-5.30); RED CELL DISTRIBUTION WIDTH 12.3 % (11.6-17.2); WHITE BLOOD COUNT 5.1 TH/MM3 (4.0-11.0)
[2018-01-29 04:15] LABS: BICARBONATE 28.4 MEQ/L (21.0-32.0); CALCIUM 7.8 MG/DL (8.5-10.1); CREATININE 0.62 MG/DL (0.50-1.00)
--- NOTE | 2018-01-29 08:10 | MG ---
cc: Colt Gaming MD EEG NUMBER: [id number] INDICATIONS: A 42-year-old with chest pain. MEDICATIONS: Zofran. DESCRIPTION: Diffuse alpha and beta rhythms are seen. An 11 Hz, 60 microvolt symmetric posterior rhythm is seen. The recording overall is synchronous and symmetric. No epileptiform or seizure activity is noted. Photic stimulation is performed without significant posterior driving. Hyperventilation is not performed. IMPRESSION: Normal awake EEG. No evidence for a focal or diffuse abnormality. Colt Gaming MD DJM/DL , 07:59 AM , 08:08 AM
[2018-01-29] MEDS ORDERED: ACETAMINOPHEN 325 MG TAB PO ONE (08:45)
[2018-01-29] MEDS ORDERED: ALPRAZolam 0.25 MG TAB PO PRN (08:45)
[2018-01-29] MEDS ORDERED: ONDANSETRON ODT 4 MG TAB PO ONE (08:45)
[2018-01-29] MEDS ORDERED: ONDA4TAB7 SL (08:49)
--- NOTE | 2018-01-29 08:49 | HHI.DCPOC ---
Discharge Care Plan Diagnosis: (1) Vasovagal syncope (2) Anxiety Goals to Promote Your Health * To prevent worsening of your condition and complications * To maintain your health at the optimal level Directions to Meet Your Goals Take your medications as prescribed Follow your dietary instruction Follow activity as directed Keep your appointments as scheduled Take your immunizations and boosters as scheduled If your symptoms worsen call your PCP, if no PCP go to Urgent Care Center or Emergency Room Smoking is Dangerous to Your Health. Avoid second hand smoke Call the 24-hour hour crisis hotline for domestic abuse at Junior Guy MD January 29, 2018 08:49
[2018-01-29] MEDS ORDERED: PROMETHAZINE INJ 25 MG/ML VIAL IM ONE (09:00)
[2018-01-29] MEDS: FAMOTIDINE 20 MG/2 ML VIAL IV PUSH SCH (09:40)
[2018-01-29] MEDS: SODIUM CHLORIDE 0.9% FLUSH 10 ML FLUSH IV FLUSH SCH (09:40)
--- NOTE | 2018-01-29 17:15 | HHI.DS ---
Discharge Summary Admission Date January 27, 2018 at 16:01 Discharge Date: January 29, 2018 Admitting Diagnosis Chest pain, rule out ACS (1) Third degree heart block ICD Code: I44.2 - Atrioventricular block, complete Diagnosis: Principal Status: Acute (2) Syncope ICD Code: R55 - Syncope and collapse Diagnosis: Principal Status: Acute (3) Chest pain ICD Code: R07.9 - Chest pain, unspecified Diagnosis: Principal Status: Acute (4) Anxiety ICD Code: F41.9 - Anxiety disorder, unspecified; R19.7 - Diarrhea, unspecified Diagnosis: Secondary Status: Acute (5) Nausea & vomiting ICD Code: R11.2 - Nausea with vomiting, unspecified Diagnosis: Secondary (6) Depression ICD Code: F32.9 - Major depressive disorder, single episode, unspecified Diagnosis: Secondary Procedures none Brief History - From Admission Patient is a 42-year-old female with past medical history significant for depression on Paxil, on Jinteli HRT who presented to the [facility] emergency department with syncope and intermittent chest pain since associated nausea and left arm pain. Patient was driving back from vegetable farmer Dr. Fernandez's office when the symptoms got worse. She pulled over at her friend's driveway and was walking towards her house when she passed out. Her friend brought patient in to the [facility] emergency department. Had similar symptoms in the past where she had lost consciousness. Initial EKG showed sinus bradycardia with intraventricular conduction delay. Patient was initially to be admitted to the chest pain unit, but she developed sudden onset feeling of discomfort with diaphoresis and passed out while in the ED. The rhythm strip showed third- degree heart block which was transient. Pacer pads were applied and cardiology Dr. Barreto was consulted, who recommended transfer to the [facility]. According to Dr. Isbell patient had multiple episodes of third- degree heart block on the monitor I evaluated the patient in the CVICU after she was transferred here. She is diaphoretic and nauseous, monitor shows sinus rhythm heart rate 60-70. I have contacted Dr. Barreto who recommends consulting fish fryer Dr. Murphy. Continue pacer pads as a precaution, I have also added dopamine if needed to keep heart rate above 45. No indication for temporary pacemaker wire at this time. CBC/BMP: 01/29/18 0334 01/29/18 0335 Significant Findings Laboratory Tests Test 01/27/18 10:00 01/27/18 16:27 01/27/18 17:02 01/28/18 00:52 White Blood Count 11.8 TH/MM3 (4.0-11.0) Neutrophils (%) (Auto) 85.5 % (16.0-70.0) Neutrophils # (Auto) 10.1 TH/MM3 (1.8-7.7) Urine Ketones 15 mg/dL (NEG) Urine Squamous Epithelial Cells 6-8 /hpf (0-5) Urine Bacteria FEW /hpf (NONE) Random Glucose 134 MG/DL (74-106) Troponin I LESS THAN 0.02 NG/ML LESS THAN 0.02 NG/ML LESS THAN 0.02 NG/ML Phosphorus Level 1.6 MG/DL (2.5-4.9) Test 01/28/18 04:42 01/28/18 10:00 01/29/18 03:34 01/29/18 03:35 Red Blood Count 3.71 MIL/MM3 (4.00-5.30) 3.55 MIL/MM3 (4.00-5.30) Monocytes (%) (Auto) 8.4 % (0.0-8.0) Total Protein 6.2 GM/DL (6.4-8.2) Calcium Level 8.3 MG/DL (8.5-10.1) 7.8 MG/DL (8.5-10.1) Phosphorus Level 2.3 MG/DL (2.5-4.9) Alkaline Phosphatase 42 U/L (45-117) Aspartate Amino Transf (AST/SGOT) 14 U/L (15-37) Potassium Level 3.0 MEQ/L (3.5-5.1) Chloride Level 108 MEQ/L (98-107) 108 MEQ/L (98-107) Troponin I LESS THAN 0.02 NG/ML LESS THAN 0.02 NG/ML Hematocrit 34.6 % (35.0-46.0) PE at Discharge HR RRR, no murmurs anxious but consolable Hospital Course Pt was admitted initially to ICU out of concern for possible 3rd deg heart block. EP was consulted, deemed problem likely vasovagal syncope with no further workup warranted. Neurology did not feel the pt was experiencing any seizure like activity, EEG unremarkable. Pt remained in sinus rhythm for remainder of hospitalization. Underwent treadmill stress test which was unremarkable. Was deemed to be very anxious given she took xanax at home. Pt has met maximal benefit from hospitalization and is clinically table for dc. Patient was verbally instructed on 01/31/18 via phone to refrain from driving or operating heavy machinery for 1 month per EP cardiology's advisory. Was also advised for adequate daily hydration. She was notified to f/u with cardiology in 1 week. Pt Condition on Discharge: Stable Discharge Disposition: Discharge Home Discharge Time: > 30 minutes Discharge Instructions DIET: Follow Instructions for: As Tolerated, No Restrictions Additional Diet Instructions: restrictions only if indicated by assembler molded frames or cardiology notes Activities you can perform: Weight Bearing as Alysha Follow up Referrals: Cardiology with Sherrill Murphy MD PCP Follow-up - 1 Week New Medications: Ondansetron Odt (Ondansetron Odt) 4 Mg Tab 4 MG SL Q8HR PRN for Nausea/Vomiting, #12 TAB 0 Refills Continued Medications: Norethindrone-Ethinyl Estradiol (Jinteli 09/12) 1-5 Mg-Mcg Tab 0.5 TAB PO DAILY for Control, #28 TAB 0 Refills Paroxetine (Paxil) 10 Mg Tab 10 MG PO HS, #30 TAB 0 Refills Junior Guy MD January 29, 2018 17:15
--- NOTE | 2018-01-30 10:38 | TR ---
Date Performed: 01/29/2018 Time Performed: 15:47:32 DOCTOR: Brian Chapin DRUG LIST: CLINICAL HISTORY: REASON FOR TEST: CHEST PAIN REASON FOR ENDING: OBSERVATION: CONCLUSION: Vern protocol completed. Stopped sec to exceeding target heart rate and leg fatigue .Maximum ZP=253 Target HR Upxvlgxr=684.0% Maximum HA=278/108 Total Exercise Time=10:44. No reprod jose st discomfort. No st t segment changes to sugg ischemia, st t segments are nondiagnostic. No ectopy. Normal bp response. Great exercise tolerance. Recovery quick and unremarkable. COMMENTS: Conclusion: Normal treadmill exercise. No evidence of ischemia. At end of recovery, a t HR of 70, ectopic atrial rhythm present.
== END 2018-01-29 17:45 | disposition home or self-care (01) | DRG 312 ==
LOC: PHED 09:52 → PHEDA 12:17 → HCVI 14:20 → OBSVTOIN 16:01 → HCPC 01-28 09:35
PROVIDERS: ADMIT Hospitalist; ATTEND Hospitalist
DX: R55 Syncope and collapse (principal); I44.2 Atrioventricular block, complete; R56.9 Unspecified convulsions; F41.9 Anxiety disorder, unspecified; R11.2 Nausea with vomiting, unspecified; F32.9 Major depressive disorder, single episode, unspecified; R42 Dizziness and giddiness; R61 Generalized hyperhidrosis; M79.602 Pain in left arm; F12.10 Cannabis abuse, uncomplicated; Z98.82 Breast implant status; Z87.442 Personal history of urinary calculi; Z98.51 Tubal ligation status; Z79.899 Other long term (current) drug therapy
CPT/HCPCS: 70450; 71045; 80048; 80053; 81001; 83735; 84100; 84443; 84484; 84703; 85025; 85027; 85610; 87641; 93005; 93017; 95819; J1650; J2405; J2550; J2765; J7030; J7050